=== PATIENT | male | born 1940 | race Caucasian/White ===

== ENCOUNTER 2023-04-02 13:40 | Emergency (ER) | payer MEDICARE ==
[~2023-04-02] VITALS: Ht 167.6 cm; Wt 70.8 kg
--- NOTE | 2023-04-02 13:40 | NUR ---
RECEIVED PT FROM VINCENZO NARAYAN. 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 PT HAS 1.5-2 INCHES LACERATION. PT STATES HEAD PAIN IS THROBBING 06/02. PT IS AAOX4, ON R/A, DENIES N/V/D/C. DISTAL PULSES NORMAL, SKIN WARM. SIDERAILS UP X2.
[2023-04-02 13:43] VITALS: BP_SYST 136
--- NOTE | 2023-04-02 13:50 | NUR ---
DR. DE LA VEGA AT BEDSIDE TO ASSESSING PT LACERATION.
[2023-04-02] MEDS ORDERED: IBUPROFEN 800 MG TABLET PO ONE (14:00)
[2023-04-02] MEDS ORDERED: DIPHTH,PERTUSS(ACELL),TET VAC 0.5 ML VIAL (Tdap) I.M. ONE (14:00)
[2023-04-02] MEDS ORDERED: BACITRACIN 1 GM OINT TP ONE (14:00)
--- NOTE | 2023-04-02 14:00 | NUR ---
DR. DE LA VEGA SHAVED LACERATION SITE, CLEANED SITE WITH IODINE, PATTED DRY, AND PLACE 2 RIKY. P TOLERATED PROCEDURE WELL.
--- NOTE | 2023-04-02 14:07 | NUR ---
PT TAKEN TO CT SCAN AT THIS TIME.
--- NOTE | 2023-04-02 15:06 | NUR ---
DRESSING APPLIED TO HEAD LAC. SITE COVERED WITH BACITRACIN, GAUZE APPLIED, THEN TEGADERM. COVERED WITH TUBE KERLIX. PT EDUCATED ON HOW TO APPLY DRESSING. PT VERBALIZED UNDERSTANDING.
[2023-04-02 15:15] LABS: BASOPHILS % (AUTO) 0.5 % (0.0-2.0); EOSINOPHILS # (AUTO) 0.1 K/uL (0.0-0.4); EOSINOPHILS % (AUTO) 1.2 % (0.0-4.0); HEMATOCRIT 43.1 % (36-54); HEMOGLOBIN 14.7 g/dL (14.0-18.0); LYMPHOCYTES # (AUTO) 1.1 K/uL (1.0-5.5); LYMPHOCYTES % (AUTO) 14.6 % (20.5-51.5); MEAN CORPUSCULAR HEMOGLOBIN 31 pg (27-31); MEAN CORPUSCULAR HGB CONC 34 % (32-36); MEAN CORPUSCULAR VOLUME 91 fL (79.0-98.0); MONOCYTES # (AUTO) 0.6 K/uL (0.0-1.0); MONOCYTES % (AUTO) 7.7 % (1.7-9.3); NEUTROPHILS # (AUTO) 5.8 K/uL (1.8-7.7); PLATELET COUNT (AUTO) 197 K/uL (130-430); RED BLOOD CELL COUNT(AUTO) 4.72 MIL/uL (4.2-6.2); RED CELL DISTRIBUTION WIDTH 14.5 % (9.0-15.0); WHITE BLOOD COUNT (AUTO) 7.7 K/uL (4.8-10.8)
[2023-04-02 15:28] LABS: PROTHROMBIN TIME 10.7 SECS (9.5-12.5)
[2023-04-02 15:34] LABS: ALANINE AMINOTRANSFERASE 28 U/L (12-78); ALBUMIN 3.9 g/dL (3.4-4.8); ANION GAP 10 (5-15); ASPARTATE AMINOTRANSFERASE 21 U/L (10-37); CALCIUM 8.6 mg/dL (8.4-11.0); CHLORIDE 103 mmol/L (98-107); CREATININE 0.93 mg/dL (0.55-1.30); GLUCOSE 100 mg/dL (70-99); TOTAL BILIRUBIN 0.7 mg/dL (0.0-1.0); UREA NITROGEN, BLOOD 15 mg/dL (8-21)
[2023-04-02] MEDS ORDERED: IBUP-1969 PO (16:10)
[2023-04-02 16:19] VITALS: BP_SYST 136
--- NOTE | 2023-04-02 16:19 | NUR ---
Patient given written and verbal discharge instructions and verbalizes understanding. ER MD discussed with patient the results and treatment provided. Patient in stable condition. ID arm band removed. Rx of MOTRIN given. Patient educated on pain management and to follow up with PMD. Pain Scale . Opportunity for questions provided and answered. Medication side effect fact sheet provided.
== END 2023-04-02 16:19 | disposition home or self-care (01) ==
LOC: SED 13:40
DX: S01.01XA Laceration without foreign body of scalp, initial encounter (principal); Z79.899 Other long term (current) drug therapy; W18.40XA Slipping, tripping and stumbling without falling, unspecified, initial encounter; Y93.89 Activity, other specified; Y92.89 Other specified places as the place of occurrence of the external cause; Y99.8 Other external cause status
CPT/HCPCS: 36415; 70450-TC; 71045; 76376; 80053; 82550; 83605; 84484; 85025; 85610-TC; 85730-TC; 90715; 93005; 99285